=== PATIENT | male | born 1940 | race Caucasian/White ===

== ENCOUNTER → 2019-04-16 | Outpatient (CLI) | payer BC ==
[~2019-04-16] MED LIST: ASPI-482 PO; ATEN25TA PO; CYCL10TA2 PO; HYDR-2769 PO; LOSA1TAB22 PO; MELO15TA23 PO; NIAC100T2 PO; REGADENOSON 0.4 MG/5 ML DISP.SYRIN. IV ONE; TAMS0.4C2 PO
--- NOTE | 2019-04-18 13:53 | CARD ---
MR#: [id number] Date of Study: 04/17/2019 Ordering Physician: VICTORINA PADGETT, Referring Physician: VICTORINA PADGETT, Tech: Meredith Galdamez RDCS APPROVED REPORT EXAM: Two-dimensional and M-mode echocardiogram with Doppler and color Doppler. Other Information Quality : Good Technically limited study due to body habitus. INDICATION Murmur 2D DIMENSIONS RVDd3.6 (2.9-3.5cm)Left Atrium(2D)3.2 (1.6-4.0cm) IVSd1.1 (0.7-1.1cm)Aortic Root(2D)3.3 (2.0-3.7cm) LVDd4.6 (3.9-5.9cm)LVOT Diameter2.4 (1.8-2.4cm) PWd1.1 (0.7-1.1cm)LVDs3.1 (2.5-4.0cm) FS (%) 33.1 %SV60.0 ml LVEF(%)60.0 (>50%) Aortic Valve AoV Peak Nathanael.133.9cm/sAoV VTI21.6cm AO Peak GR.7.2mmHgLVOT VTI 16.02cm AO Mean GR.3mmHgAVA (VTI)3.20cm2 Mitral Valve MV E Esppifrs71.4cm/sMV DECEL [id number] MV A Bxgmeqdg083.5cm/sE/A Ratio0.6 TDI Lateral E' P. V9.65cm/sMedial E' P. V4.51cm/s E/Lateral E'8.5E/Medial E'18.3 Tricuspid Valve TR P. Qhkfrpri373cm/sRAP BBQWOGDB2erMn TR Peak Gr.47mmBvBPHP15zwVk Pulmonary Vein S1 Ogjijekh38.0cm/sS2 Qylifedq04.28cm/s D2 Zpoakxfl22.3cm/s LEFT VENTRICLE The left ventricle is normal size. There is normal left ventricular wall thickness. The left ventricu lar systolic function is normal and the ejection fraction is within normal range. The Ejection Fracti on is 55-60%. There is normal LV segmental wall motion. Transmitral Doppler flow pattern is Grade I-a bnormal relaxation pattern. RIGHT VENTRICLE The right ventricle is normal size. The right ventricular systolic function is normal. ATRIA The left atrium size is normal. The right atrium size is normal. The interatrial septum is intact wit h no evidence for an atrial septal defect or patent foramen ovale as noted on 2-D or Doppler imaging. AORTIC VALVE The aortic valve is calcified but opens well. Doppler and Color Flow revealed no significant aortic r egurgitation. There is no significant aortic valvular stenosis. MITRAL VALVE The mitral valve is calcified but opens well. Mitral annular calcification is mild to moderate. There is no evidence of mitral valve prolapse. There is no mitral valve stenosis. Doppler and Color Flow r evealed no mitral valve regurgitation noted. TRICUSPID VALVE The tricuspid valve is normal in structure and function. Doppler and Color Flow revealed trace tricus pid regurgitation. There is moderate to severe pulmonary hypertension. The PA pressure was estimated at 65 mmHg. There is no tricuspid valve stenosis. PULMONIC VALVE The pulmonic valve is not well visualized. Doppler and Color Flow revealed mild pulmonic valvular reg urgitation. There is no pulmonic valvular stenosis. GREAT VESSELS The aortic root is normal in size. The ascending aorta is mildly dilated at 3.7 cm. The IVC is normal in size and collapses >50% with inspiration. PERICARDIAL EFFUSION There is no evidence of significant pericardial effusion. Critical Notification Critical Value: No <Conclusion> The left ventricular systolic function is normal and the ejection fraction is within normal range. Th e Ejection Fraction is 55-60%. There is normal LV segmental wall motion. Doppler and Color Flow revealed trace tricuspid regurgitation. There is moderate to severe pulmonary hypertension. The PA pressure was estimated at 65 mmHg. The ascending aorta is mildly dilated at 3.7 cm. Signed by : Jose R Ghosh, Electronically Approved : 04/17/2019 10:32:50
--- NOTE | 2019-04-18 13:54 | RAD ---
MR#: [id number] Date of Study: 04/17/2019 Ordering Physician: VICTORINA PADGETT, Referring Physician: MANI RIOS Tech: ROBIN Pulido APPROVED REPORT Test Type: Pharmacological Stress Nurse/Tech: Nash Beltran RN Test Indications: dyspnea on exertion Cardiac History: COPD, CAD, tachycardia Medications: See Electronic Medical Record Medical History: See Electronic Medical Record Resting ECG: SR 1 degree block Resting Heart Rate: 79 bpm Resting Blood Pressure: 140/67mmHg Pretest Chest Pain: None Nurse/Tech Notes S1S2 Consent: The procedure was explained to the patient in lay terms. Informed consent was witnessed. Sesar eout was entered into [employer]. History and Stress Test performed by Nash Beltran RN Pharm. Details Pharmacologic stress testing was performed using 0.4mg per 5ml of regadenoson given intravenously ove r 7-10 seconds. Stress Symptoms No chest pain or symptoms. POST EXERCISE Reason for Termination: Infusion complete Max HR: 105 bpm Max Blood Pressure: 158/75mmHg Blood Pressure response to exercise: Normal blood pressure response during stress. Heart Rate response to exercise: Normal response Chest Pain: No. Arrhythmia: No. ST Change: No. INTERPRETATION Stress EKG Conclusion: No evidence of stress induced EKG changes. Imaging Protocol IMAGE PROTOCOL: Rest Tc-99m/stress Tc-99m 2 days Rest: Stress: Viability: Radiopharm.Tc99m KbnzotaqoYu38h Sestamibi Hqfb11bTd 33mCi Duration 13min. 13min. Img Date 04/16/2019 04/17/2019 Inj-Img Ohtr13ftl. 60min. Rest Admin Site:IV - Right HandAdministrator:ROBIN Pulido Stress Admin Site: IV - Right AntecubitalAdministrator: ROSE Bergeron, ARRT (R)(N) STRESS DATA End Diast. Vol.78.0mlLVEDV index BSA35.0ml End Syst. Vol.15.0mlLVESV index BSA7.0ml Myocardial Pkze041.0gEject. Liagevir74.0% Stress Scores Regional WT0.00Summed WT6.00 Regional WM0.00Summed WM0.00 LV Perfusion There is a large sized severe in intensity FIXED defect suggestive of prior infarct without active is chemia. This may be related to a subdiaphragmatic attenuation artifact as there is normal wall motion with an EF > 70%. LV Perf. Quant 17 Seg. SSS11.00 17 Seg. SRS14.00 17 Seg. SDS1.00 Stress Defect Extent (% LAD)20.00Rest Defect Extent (% LAD)12.50Rev. Defect Extent (% LAD)0.00 Stress Defect Extent (% LCX) 18.80Rest Defect Extent (% LCX)25.00Rev. Defect Extent (% LCX)0.00 Stress Defect Extent (% RCA)23.30Rest Defect Extent (% RCA)14.40Rev. Defect Extent (% RCA)0.00 Stress Defect Extent (% NONA)22.20Rest Defect Extent (% NONA)21.70Rev. Defect Extent (% NONA)0.00 Other Information Quality:Average Risk Assessment: Low Risk Conclusion 1. No evidence of stress induced EKG changes. 2. Large FIXED inferior wall defect suggestive of prior infarct but more likely a attenuation artifac t based on normal wall motion and lack of Q waves on EKG 3. Normal EF at > 70% 4. Low risk study Signed by : Jose R Ghosh, Electronically Approved : 04/17/2019 10:37:29
== END | disposition home or self-care (01) ==
LOC: NM 08:05
PROVIDERS: ATTEND Internal Medicine Cardiovascular Disease
DX: I27.20 Pulmonary hypertension, unspecified (principal); I25.10 Atherosclerotic heart disease of native coronary artery without angina pectoris; J44.9 Chronic obstructive pulmonary disease, unspecified; I10 Essential (primary) hypertension; R00.8 Other abnormalities of heart beat; Z87.891 Personal history of nicotine dependence; Z79.01 Long term (current) use of anticoagulants
CPT/HCPCS: 78452; A9500; 93017; 93306; J2785